=== PATIENT | male | born 1980 | race Caucasian/White ===

== ENCOUNTER 2022-11-21 06:18 | Emergency (ER) | payer MEDICAID ==
[~2022-11-21] VITALS: Ht 182.9 cm; Wt 95.3 kg
[2022-11-21] MEDS ORDERED: LIDOCAINE 1%-EPI 1:100,000 20 ML VIAL IJ ONE (06:45)
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
[2022-11-21] MEDS ORDERED: LIDOCAINE 1%-EPI 1:100,000 20 ML VIAL ONE (06:46)
[2022-11-21] MEDS ORDERED: TDAP DIPH,PERTUSS,TET VAC/PF 0.5 ML DISP.SYRIN IM ONE ×2 (07:00→07:04)
--- NOTE | 2022-11-21 07:06 | NUR ---
Pt care continue as he is been medicated as ordered and sutures done by as report is given to the AM receiving nurse.
[2022-11-21] MEDS ORDERED: NEOMY/BACITRA/POLYMYXIN B OINT UD PACKET TP ONE ×2 (07:15→07:23)
--- NOTE | 2022-11-21 07:26 | NUR ---
Patient sitting up in bed,ointment applied to wound site as per order. No s/s of any distress noted at this time, will continue to monitor.
--- NOTE | 2022-11-21 07:28 | NUR ---
Xray at bedside.
--- NOTE | 2022-11-21 07:36 | NUR ---
Family at bedside, awaiting xray results.
[2022-11-21] MEDS ORDERED: IBUP-1490 PO (07:40)
--- NOTE | 2022-11-21 07:57 | NUR ---
ACI given, drsg applied to wound site, remains stable for discharge home with family.
[2022-11-21 07:58] VITALS: BP 125/73
== END 2022-11-21 07:59 | disposition home or self-care (01) ==
LOC: ER 06:23
DX: S51.012A Laceration without foreign body of left elbow, initial encounter (principal); Z79.1 Long term (current) use of non-steroidal anti-inflammatories (NSAID); V49.9XXA Car occupant (driver) (passenger) injured in unspecified traffic accident, initial encounter; Y93.89 Activity, other specified; Y92.89 Other specified places as the place of occurrence of the external cause; Y99.8 Other external cause status
CPT/HCPCS: 99283; 73080; 90715; 90471; 12002; J3490; A4663